=== PATIENT | female | born 2000 | race Two or more races ===

== ENCOUNTER 2020-09-19 14:59 | Outpatient (CLI) | payer OTHER ==
[~2020-09-19 14:59] MED LIST: NO TOMA MED.
== END 2020-09-19 15:13 | disposition home or self-care (01) ==
LOC: RAD 14:59
PROVIDERS: ATTEND Family Medicine
DX: M54.6 Pain in thoracic spine (principal)

== ENCOUNTER 2022-12-15 11:09 | Outpatient (CLI) | payer OTHER | END 2022-12-15 11:19 | disposition home or self-care (01) | LOC: RAD 11:09 | PROVIDERS: ATTEND Family Medicine | DX: M54.6 Pain in thoracic spine (principal); M54.51 Vertebrogenic low back pain ==